=== PATIENT | male | born 1995 | race Two or more races ===

== ENCOUNTER 2017-03-03 23:19 | Emergency (ER) | payer OTHER ==
[~2017-03-03] VITALS: Ht 172.7 cm; Wt 73.0 kg
[2017-03-04 01:22] VITALS: BP 102/63
== END 2017-03-04 02:37 | disposition home or self-care (01) ==
LOC: ER 23:19
DX: F10.129 Alcohol abuse with intoxication, unspecified (principal); F17.200 Nicotine dependence, unspecified, uncomplicated; Z88.0 Allergy status to penicillin; Y90.9 Presence of alcohol in blood, level not specified
CPT/HCPCS: 99283